=== PATIENT | female | born 1945 | race Two or more races ===

== ENCOUNTER 2022-07-29 06:21 | Day surgery (SDC) | payer OTHER ==
[~2022-07-29 06:21] MED LIST: EZETIMIBE-SIMV1 EACH PO; PRAVASTATIN SOD10 MG PO; TOPROL XL50 M1 PO
[2022-07-29] MEDS ORDERED: ALEVE220 M1 PO (16:42)
[2022-07-29] MEDS ORDERED: DUI500 PO (16:42)
[2022-07-29] MEDS ORDERED: PERCOCET 5-3251 EACH PO (16:42)
== END 2022-07-29 17:00 | disposition home or self-care (01) ==
LOC: CIR.AMB 06:21
PROVIDERS: ATTEND Orthopaedic Surgery
DX: S52.532A Colles' fracture of left radius, initial encounter for closed fracture (principal); M81.0 Age-related osteoporosis without current pathological fracture; Z20.822 Contact with and (suspected) exposure to COVID-19; I10 Essential (primary) hypertension; E03.9 Hypothyroidism, unspecified; D64.89 Other specified anemias
CPT/HCPCS: 25609; 20902; 29075; L8699

== ENCOUNTER 2023-02-20 07:24 | Inpatient (IN) | payer OTHER ==
[~2023-02-20] VITALS: Ht 152.4 cm; Wt 59.4 kg
[~2023-02-20 07:24] MED LIST changes: +ALEVE220 M1 PO; +DUI500 PO; +PERCOCET 5-3251 EACH PO
[2023-02-20] MEDS ORDERED: ANASTROZOLE1 MG PO (07:49)
[2023-02-24] MEDS ORDERED: EZETIMIBE10 MG (08:20)
[2023-02-24] MEDS ORDERED: LEVOTHYROXINE25 MC1 (08:21)
[2023-02-25] MEDS ORDERED: PERCOCET 5-3251 EACH PO (08:02)
[2023-02-25] MEDS ORDERED: DUI500 PO (08:02)
[2023-02-25] MEDS ORDERED: ELIQUIS2.5 MG PO (08:02)
== END 2023-02-28 14:28 | DRG 470 ==
LOC: SURG 02-24 05:09 → O/R 02-24 05:09 → SURG 02-24 07:30
PROVIDERS: ADMIT Orthopaedic Surgery; ATTEND Orthopaedic Surgery
PROC: 0SRC0J9 Replacement of Right Knee Joint with Synthetic Substitute, Cemented, Open Approach (ICD-10-PCS; principal; 2023-02-24 10:30)
PROC: BW38ZZZ Magnetic Resonance Imaging (MRI) of Head (ICD-10-PCS; 2023-02-25)
PROC: B345ZZZ Ultrasonography of Bilateral Common Carotid Arteries (ICD-10-PCS; 2023-02-25)
PROC: 4A12X4Z Monitoring of Cardiac Electrical Activity, External Approach (ICD-10-PCS; 2023-02-25)
PROC: BW24YZZ Computerized Tomography (CT Scan) of Chest and Abdomen using Other Contrast (ICD-10-PCS; 2023-02-26)
PROC: B54DZZZ Ultrasonography of Bilateral Lower Extremity Veins (ICD-10-PCS; 2023-02-26)
PROC: 30233N1 Transfusion of Nonautologous Red Blood Cells into Peripheral Vein, Percutaneous Approach (ICD-10-PCS; 2023-02-26)
DX: M17.11 Unilateral primary osteoarthritis, right knee (principal); D62 Acute posthemorrhagic anemia; M22.11 Recurrent subluxation of patella, right knee; R55 Syncope and collapse; Z20.822 Contact with and (suspected) exposure to COVID-19; I10 Essential (primary) hypertension; E03.9 Hypothyroidism, unspecified; Z96.651 Presence of right artificial knee joint
CPT/HCPCS: 70544

== ENCOUNTER 2023-12-23 08:00 | Inpatient (IN) | payer OTHER ==
[~2023-12-23] VITALS: Ht 152.4 cm; Wt 61.7 kg
[~2023-12-23 08:00] MED LIST changes: +ANASTROZOLE1 MG PO; +ELIQUIS2.5 MG PO; +EZETIMIBE10 MG; +LEVOTHYROXINE25 MC1
[2023-12-23 08:47] LABS: HEMATOCRIT 37.2 % (36.0-45.00); HEMOGLOBIN 12.6 g/dL (12.0-15.00); MEAN CELL VOLUME 79.9 fL (80.00-100.00); MEAN CORPUSCULAR HEMOGLOBIN 27.2 pg (27.00-32.0); PLATELET COUNT 291 K/uL (150-450); RED BLOOD COUNT 4.65 M/uL (4.00-6.00); RED CELL DISTRIBUTION WIDTH 13.6 % (11.5-14.5)
[2023-12-23 08:48] LABS: PH,URINE 6.5 (5.0-8.0); URINE APPEARANCE Clear; URINE BILIRRUBIN Negative (NEGATIVE); URINE BLOOD Negative; URINE COLOR Yellow; URINE GLUCOSE Negative (NEGATIVE); URINE LEUKOCYTE Small; URINE NITRATE Negative; URINE PROTEIN Negative (NEGATIVE); URINE UROBILINOGEN 0.2 E.U./dl
[2023-12-23 08:52] LABS: URINE BACTERIA 55.4 uL (0.0-1933); URINE EPITHELIAL CELLS 6.9 uL (0.0-38.8); URINE RBC 4.7 uL (0.0-20.8); URINE WBC 7.7 uL (0.0-23.2)
[2023-12-23 09:05] LABS: INR 0.98; PARTIAL THROMBOPLASTIN TIME 28.2 SECONDS (22.0-34.0); PROTHROMBIN TIME 10.3 SECONDS (9.0-11.5)
[2023-12-23 09:32] LABS: BILIRUBIN TOTAL 0.92 mg/dL (0.3-1.2); CALCIUM 9.5 mg/dL (8.5-10.1); CREATININE SERUM 0.63 mg/dL (0.55-1.02); GFR 91.39; GLOBULINA 3.5 G/DL (2.4-3.5); POTASSIUM 4.45 mEq/L (3.5-5.1); TOTAL PROTEIN 7.5 gm/dL (6.4-8.2)
[2023-12-29] MEDS ORDERED: MORPHINE SULFATE 4 MG/ML VIAL IV ONE (08:15)
[2023-12-29] MEDS ORDERED: BUPIVACAINE HCL 30 ML VIAL IJ ONE (08:15)
[2023-12-29] MEDS ORDERED: KETOROLAC TROMETHAMINE 60 MG VIAL IM ONE (08:15)
[2023-12-29] MEDS ORDERED: LIDOCAINE HCL 1%/EPINEPHRINE 20ML VIAL IJ ONE (08:15)
[2023-12-29] MEDS ORDERED: VANCOMYCIN HCL 1,000 MG in 0.9 % SODIUM CHLORIDE 250 ML IR ONE (08:15)
[2023-12-29] MEDS ORDERED: TRANEXAMIC ACID 1,000 MG in 0.9 % SODIUM CHLORIDE 100 ML IV ONE (08:15)
[2023-12-29] MEDS ORDERED: METHYLPREDNISOLONE ACETATE 80 MG/ML VIAL IU ONE (08:15)
[2023-12-29] MEDS ORDERED: POVIDONE-IODINE 0.75 OZ PACKET TOP ONE (08:15)
[2023-12-29] MEDS ORDERED: CEFAZOLIN SODIUM 2,000 MG in 0.9 % SODIUM CHLORIDE 100 ML IV ONE (08:15)
[2023-12-29] MEDS ORDERED: ONDANSETRON HCL 2 MG/ML VIAL IV PRN (09:15)
[2023-12-29] MEDS ORDERED: MORPHINE SULFATE 4 MG/ML CARTRIDGE IV PRN (09:15)
[2023-12-29] MEDS ORDERED: OxyCODONE HCL 5 MG TABLET (ROXICODONE) PO PRN (09:15)
[2023-12-29] MEDS ORDERED: SODIUM CHLORIDE 0.45 % 1,000 ML IV SCH (09:15)
[2023-12-29] MEDS ORDERED: ACETAMINOPHEN 500 MG GEL..CAP PO SCH (12:00)
[2023-12-29] MEDS ORDERED: ENALAPRILAT DIHYDRATE 1.25 MG/ML VIAL IV PRN (14:00)
[2023-12-29] MEDS ORDERED: CEFAZOLIN SODIUM 1,000 MG VIAL IV SCH (17:00)
[2023-12-29] MEDS ORDERED: GABAPENTIN 300 MG CAPSULE PO SCH (17:00)
[2023-12-29] MEDS ORDERED: FAMOTIDINE/PF 20 MG in 0.9 % SODIUM CHLORIDE 8 ML IV PUSH SCH (21:00)
[2023-12-30] MEDS ORDERED: LEVOTHYROXINE SODIUM 25 MCG TABLET PO SCH (06:00)
[2023-12-30 06:57] LABS: HEMATOCRIT 36.1 % (36.0-45.00); MEAN CELL VOLUME 82.1 fL (80.00-100.00); MEAN CORPUSCULAR HEMOGLOBIN 27.4 pg (27.00-32.0); MEAN CORPUSCULAR HGB CONC 33.3 g/dl (32.0-36.0); RED BLOOD COUNT 4.39 M/uL (4.00-6.00)
[2023-12-30 08:00] LABS: PLATELET COUNT 151 K/uL (150-450)
[2023-12-30] MEDS ORDERED: APIXABAN 2.5 MG TABLET PO SCH (09:00)
[2023-12-30] MEDS ORDERED: METOPROLOL SUCCINATE 50 MG TAB.SR.24H PO SCH (09:00)
[2023-12-30] MEDS ORDERED: SENNOSIDES 1 TAB TABLET PO SCH (09:00)
[2023-12-30] MEDS ORDERED: FAMOTIDINE/PF 20 MG/2 ML VIAL ONE (09:01)
[2023-12-30] MEDS ORDERED: DUI500 PO (09:11)
[2023-12-30] MEDS ORDERED: PERCOCET 5-3251 EACH PO (09:11)
[2023-12-30] MEDS ORDERED: ELIQUIS2.5 MG PO (09:11)
[2023-12-31] MEDS ORDERED: IRON FUM,PS/FOLIC ACID/VITC/B3 1 CAP CAPSULE PO SCH (09:00)
== END 2023-12-30 14:16 | DRG 470 ==
LOC: OB/GYN 12-29 05:10 → O/R 12-29 05:10 → SURH 12-29 08:00 → OB/GYN 12-29 13:01 → SURH 12-29 15:00 → OB/GYN 12-30 14:16
PROVIDERS: ADMIT Orthopaedic Surgery; ATTEND Orthopaedic Surgery
PROC: 0QUF0JZ Supplement Left Patella with Synthetic Substitute, Open Approach (ICD-10-PCS; 2023-12-29)
PROC: 0MNP0ZZ Release Left Knee Bursa and Ligament, Open Approach (ICD-10-PCS; 2023-12-29)
PROC: 2W2MX4Z Dressing of Left Lower Extremity using Bandage (ICD-10-PCS; 2023-12-29)
PROC: 0SRD0JZ Replacement of Left Knee Joint with Synthetic Substitute, Open Approach (ICD-10-PCS; principal; 2023-12-29 15:00)
DX: M17.0 Bilateral primary osteoarthritis of knee (principal); S52.502A Unspecified fracture of the lower end of left radius, initial encounter for closed fracture; D62 Acute posthemorrhagic anemia; G45.9 Transient cerebral ischemic attack, unspecified; I10 Essential (primary) hypertension; E07.9 Disorder of thyroid, unspecified; C50.919 Malignant neoplasm of unspecified site of unspecified female breast; R55 Syncope and collapse; Z96.653 Presence of artificial knee joint, bilateral; Z20.822 Contact with and (suspected) exposure to COVID-19; M22.12 Recurrent subluxation of patella, left knee